=== PATIENT | male | born 1950 | race Caucasian/White ===

== ENCOUNTER → 2024-07-01 14:13 | Outpatient (REF) | payer MEDICARE, OTHER, SELFPAY | LOC: HWRAD 14:13 | PROVIDERS: ATTENDING PHYSICIAN Podiatrist Foot & Ankle Surgery; FAMILY PHYSICIAN Family Medicine | DX: M76.821 Posterior tibial tendinitis, right leg (principal) | CPT/HCPCS: 73610; 73630 ==

== ENCOUNTER → 2024-12-05 08:15 | Outpatient (REF) | payer MEDICARE, OTHER, SELFPAY | LOC: HWRCS 08:15 | PROVIDERS: ATTENDING PHYSICIAN Nurse Practitioner Gerontology; FAMILY PHYSICIAN Family Medicine | DX: I25.810 Atherosclerosis of coronary artery bypass graft(s) without angina pectoris (principal); I47.29 Other ventricular tachycardia; I35.0 Nonrheumatic aortic (valve) stenosis | CPT/HCPCS: 93306 ==